=== PATIENT | male | born 1940 | race Caucasian/White ===

== ENCOUNTER 2023-03-05 14:37 | Emergency (ER) | payer OTHER ==
[~2023-03-05] VITALS: Ht 190.5 cm; Wt 87.7 kg
[2023-03-05 15:33] LABS: Basophils # (auto) 0 10 ^3/uL (0-0.2); Basophils % (auto) 0.2 % (0.0-2.0); Eosinophils # (auto) 0.1 10 ^3/uL (0-0.8); Eosinophils % (auto) 1.8 % (0.0-7.0); Hematocrit 44.4 % (41.0-53.0); Hemoglobin 15.4 g/dL (13.5-17.5); Lymphocytes # (auto) 1.2 10 ^3/uL (0.4-5.4); Lymphocytes % (auto) 19.4 % (10.0-50.0); Mean Corpuscular Hemoglobin 30.3 pg (28.0-32.0); Mean Corpuscular Hgb Conc. 34.6 g/dL (32.0-36.0); Mean Corpuscular Volume 87.5 fL (80.0-100.0); Monocytes # (auto) 0.7 10 ^3/uL (0-1.3); Monocytes % (auto) 11.2 % (0.0-12.0); Neutrophils % (auto) 67.4 % (37.0-80.0); Nucleated Red Blood Cells % 0.3 %; Red Blood Cells 5.08 10^6/uL (4.5-5.90); Red Cell Distribution Width 13.9 % (11.8-14.3)
[2023-03-05 15:49] LABS: Albumin 3.4 g/dL (3.4-5.0); Calcium 8.3 mg/dL (8.5-10.1); Potassium 4.2 mmol/L (3.5-5.1)
[2023-03-05 15:54] LABS: Bilirubin, Total 0.9 mg/dL (0.2-1.0); Total Protein 6.3 g/dL (6.4-8.2)
[2023-03-05 16:33] LABS: BUN/Creatinine Ratio 15.9 (10.0-20.0)
[2023-03-05] MEDS ORDERED: SODIUM CHLORIDE 0.9% 500 ML IV ONE (17:15)
[2023-03-05] MEDS ORDERED: INSULIN LISPRO (HUMAN) 100 UNITS/ML ML SC ONE (17:15)
[2023-03-05] MEDS ORDERED: LIDOCAINE 1% HCL (LOCAL ANESTH.) INJ 20ML MDV ID ONE (18:45)
[2023-03-05 20:04] VITALS: BP 102/72
[2023-03-05] MEDS ORDERED: ACET-1079 PO ×3 (20:35→21:08)
[2023-03-05] MEDS ORDERED: MAX35OO TOP ×3 (20:35→21:08)
[2023-03-05] MEDS ORDERED: CEPH250C PO ×3 (20:35→21:08)
== END 2023-03-05 21:16 | disposition home or self-care (01) ==
LOC: ER 14:37
DX: S01.111A Laceration without foreign body of right eyelid and periocular area, initial encounter (principal); S60.512A Abrasion of left hand, initial encounter; S60.511A Abrasion of right hand, initial encounter; S50.312A Abrasion of left elbow, initial encounter; S50.311A Abrasion of right elbow, initial encounter; S80.212A Abrasion, left knee, initial encounter; S80.211A Abrasion, right knee, initial encounter; E11.9 Type 2 diabetes mellitus without complications; Z88.5 Allergy status to narcotic agent; W18.39XA Other fall on same level, initial encounter; Y93.89 Activity, other specified; Y92.89 Other specified places as the place of occurrence of the external cause; Y99.8 Other external cause status
CPT/HCPCS: 12013; 36415; 70450; 80053; 85025; 93005; 96360; 96361; 96372; 99285; J1815; J2001; J7040

== ENCOUNTER 2023-03-14 08:55 | Emergency (ER) | payer OTHER ==
[~2023-03-14] VITALS: Ht 190.5 cm; Wt 78.5 kg
[~2023-03-14 08:55] MED LIST: ACET-1079 PO; CEPH250C PO; MAX35OO TOP
[2023-03-14 09:26] VITALS: BP 139/79
== END 2023-03-14 09:57 | disposition home or self-care (01) ==
LOC: ER 08:55
DX: S01.111D Laceration without foreign body of right eyelid and periocular area, subsequent encounter (principal); Z48.02 Encounter for removal of sutures; E11.9 Type 2 diabetes mellitus without complications; Z88.5 Allergy status to narcotic agent; Z79.1 Long term (current) use of non-steroidal anti-inflammatories (NSAID); Z79.899 Other long term (current) drug therapy; X58.XXXD Exposure to other specified factors, subsequent encounter

== ENCOUNTER → 2024-01-11 | Outpatient (CLI) | payer OTHER ==
[~2024-01-11] MED LIST changes: +IODIXANOL 320MG/ML 100ML BTL IV ONE; +READI-CAT 2 (BARIUM SULF)(VANILLA SMOOTHIE) 450ML ONE
[2024-01-11 10:38] VITALS: BP 126/76; PULSE 104; RESP 16; O2SAT 96
[2024-01-11 11:37] VITALS: BP 123/70; PULSE 101; RESP 16; O2SAT 96
== END | disposition home or self-care (01) ==
LOC: Rad HDHVI 10:27
PROVIDERS: ATTEND Internal Medicine Cardiovascular Disease
DX: J98.11 Atelectasis (principal); N13.30 Unspecified hydronephrosis; K76.89 Other specified diseases of liver; I25.10 Atherosclerotic heart disease of native coronary artery without angina pectoris; I70.0 Atherosclerosis of aorta; N40.0 Benign prostatic hyperplasia without lower urinary tract symptoms; M47.815 Spondylosis without myelopathy or radiculopathy, thoracolumbar region; R91.1 Solitary pulmonary nodule; R10.9 Unspecified abdominal pain; R07.89 Other chest pain; E40 Kwashiorkor
CPT/HCPCS: 71260; 74177; G0463; Q9967